=== PATIENT | female | born 1950 | race Caucasian/White ===

== ENCOUNTER 2025-02-03 17:39 | Emergency (ER) | payer MEDICARE, OTHER ==
[2025-02-03] MEDS: Ketorolac 30 MG/ML SDV IM ONE (17:59)
[2025-02-03] MEDS: Diphtheria,Pertussis(Acell),Tetanus Vaccine 0.5 ML Syringe IM ONE (17:59)
[2025-02-03] MEDS ORDERED: Lidocaine 1% with EPINEPHrine 1:100,000 20 ML MDV INFILT ONE (17:59)
[2025-02-03] MEDS: Take Home: Cephalexin 500 MG Cap, 6 Cap Pack PO ONE (18:36)
[2025-02-03] MEDS: Take Home: Acetaminophen/HYDROcodone 325-5 MG, 5 Tab Pack PO ONE (18:36)
== END 2025-02-03 18:51 | disposition home or self-care (01) ==
LOC: VM.ED 17:39
DX: S42.434A Nondisplaced fracture (avulsion) of lateral epicondyle of right humerus, initial encounter for closed fracture (principal); S51.811A Laceration without foreign body of right forearm, initial encounter; S40.021A Contusion of right upper arm, initial encounter; Z88.5 Allergy status to narcotic agent; Z88.8 Allergy status to other drugs, medicaments and biological substances; Z79.899 Other long term (current) drug therapy; W55.22XA Struck by cow, initial encounter; Z23 Encounter for immunization
CPT/HCPCS: 73060-RT; 73090-RT; 90471; 90715; 96372; 99283-25; 99284; A9270-GY; J1885